=== PATIENT | female | born 1970 | race Caucasian/White ===

== ENCOUNTER 2016-11-06 01:18 | Inpatient (IN) | payer MEDICAID, OTHER ==
[~2016-11-06] VITALS: Ht 157.5 cm; Wt 75.3 kg
[2016-11-06] MEDS ORDERED: DULO20CA30 PO (01:25)
[2016-11-06] MEDS ORDERED: BUPR150SR PO (01:25)
[2016-11-06] MEDS ORDERED: AMLO-511 PO (01:25)
[2016-11-06] MEDS ORDERED: LORazepam 2 MG TABLET PO ONE ×2 (02:15→06:15)
[2016-11-06 05:31] LABS: BASOPHILS # (AUTO) 0.05 K/uL (0.00-0.20); BASOPHILS % (AUTO) 0.5 % (0.0-2.0); EOSINOPHILS # (AUTO) 0.05 K/uL (0.00-0.70); EOSINOPHILS % (AUTO) 0.54 % (1.0-6.0); HEMATOCRIT 39.4 % (36-46); HEMOGLOBIN 13.5 g/dL (12.0-16.0); LYMPHOCYTES # (AUTO) 2.8 K/uL (1.0-4.8); LYMPHOCYTES % (AUTO) 30.2 % (22.0-44.0); MEAN CORPUSCULAR HEMOGLOBIN 31.8 pg (26.0-34.0); MEAN CORPUSCULAR HGB CONC 34.3 G/dL (31.0-37.0); MEAN CORPUSCULAR VOLUME 93 fL (80-100); MONOCYTES # (AUTO) 0.9 K/uL (0.1-1.0); MONOCYTES % (AUTO) 9.6 % (2.0-9.0); NEUTROPHILS # (AUTO) 5.6 K/uL (1.8-7.7); NEUTROPHILS % (AUTO) 59.2 % (40.0-70.0); PLATELET COUNT (AUTO) 342 K/uL (150-450); RED BLOOD CELL COUNT(AUTO) 4.25 MIL/uL (4.00-5.20); WHITE BLOOD COUNT (AUTO) 9.4 K/uL (4.5-11.0)
[2016-11-06 05:41] LABS: ANION GAP 9 mmol/L (8-16); CALCIUM, TOTAL 9.2 mg/dL (8.8-10.5); CARBON DIOXIDE 28 mmol/L (22-29); CHLORIDE 101 mmol/L (98-107); CREATININE 0.91 mg/dL (0.60-1.30); GLOMERULAR FILTR. RATE CALC > 60 mL/min (>60); POTASSIUM 3.4 mmol/L (3.5-5.1); SODIUM SERUM 138 mmol/L (136-145); UREA NITROGEN, BLOOD 12 mg/dL (7-18)
[2016-11-06 05:47] LABS: ALANINE AMINOTRANSFERASE 22 U/L (12-78); ALBUMIN 4.2 g/dL (3.4-5.0); ASPARTATE AMINOTRANSFERASE 16 U/L (15-37); BILIRUBIN,TOTAL 0.5 mg/dL (0.1-1.0); TOTAL PROTEIN, SERUM 7.8 g/dL (6.4-8.2)
[2016-11-06] MEDS ORDERED: ZOLPIDEM TARTRATE 10 MG TABLET PO PRN (06:00)
[2016-11-06] MEDS ORDERED: HALOPERIDOL 5 MG TABLET PO ONE (06:15)
[2016-11-06] MEDS ORDERED: DiphenhydrAMINE HCL 25 MG CAPSULE PO ONE (06:15)
[2016-11-06] MEDS: HALOPERIDOL 5 MG TABLET PO PRN ×2 (07:43→20:38)
[2016-11-06 11:52] VITALS: BP 124/72
[2016-11-06] MEDS: LORazepam 2 MG TABLET PO PRN ×2 (12:13→20:38)
[2016-11-06] MEDS ORDERED: POTASSIUM CHLORIDE 20 MEQ ER TABLET PO ONE (13:15)
[2016-11-06 16:06] VITALS: BP 132/72
[2016-11-07 05:22] VITALS: BP 122/65
[2016-11-07 07:58] LABS: ANION GAP 7 mmol/L (8-16); CALCIUM, TOTAL 9.1 mg/dL (8.8-10.5); CARBON DIOXIDE 28 mmol/L (22-29); CHLORIDE 102 mmol/L (98-107); CREATININE 0.96 mg/dL (0.60-1.30); GLOMERULAR FILTR. RATE CALC > 60 mL/min (>60); POTASSIUM 4.1 mmol/L (3.5-5.1); SODIUM SERUM 137 mmol/L (136-145); UREA NITROGEN, BLOOD 12 mg/dL (7-18)
[2016-11-07] MEDS: BuPROPion HCL 150 MG SR TABLET PO SCH (08:14)
[2016-11-07] MEDS: DULoxetine HCL 20 MG CAPSULE PO SCH (08:14)
[2016-11-07 08:35] VITALS: BP 147/86
[2016-11-07] MEDS ORDERED: DULoxetine HCL 20 MG CAPSULE PO SCH ×2 (09:00)
[2016-11-07] MEDS: LORazepam 2 MG TABLET PO PRN (10:28)
[2016-11-07 16:09] VITALS: BP 134/79
[2016-11-08 05:51] VITALS: BP 135/90
[2016-11-08 08:25] VITALS: BP 143/106
[2016-11-08] MEDS: DULoxetine HCL 20 MG CAPSULE PO SCH (08:36)
[2016-11-08] MEDS: BuPROPion HCL 150 MG SR TABLET PO SCH (08:36)
[2016-11-08] MEDS ORDERED: AmLODIPine BESYLATE 5 MG TABLET PO SCH (09:00)
[2016-11-08] MEDS: LORazepam 2 MG TABLET PO PRN ×2 (09:33→16:30)
[2016-11-08 10:02] LABS: APPEARANCE,URINE CLOUDY (CLEAR); GLUCOSE, URINE (UA) NEGATIVE (NEGATIVE); KETONES,URINE NEGATIVE (NEGATIVE); LEUKOCYTE ESTERASE ,URINE LARGE (NEGATIVE); OCCULT BLOOD,URINE NEGATIVE (NEGATIVE); PROTEIN,URINE NEGATIVE (NEGATIVE)
[2016-11-08 10:18] LABS: ADD UA MICROSCOPIC YES
[2016-11-08 10:20] LABS: RBC,URINE 0-2 /HPF (0-2)
[2016-11-08 10:21] LABS: SQUAMOUS EPITHELIAL CELL,UR Many /LPF (None Seen)
[2016-11-08 12:02] VITALS: BP 121/91
[2016-11-08 16:00] VITALS: BP 117/83
== END 2016-11-08 18:00 | disposition home or self-care (01) | DRG 753 ==
LOC: EMS 01:20 → B2S 08:51
PROVIDERS: ADMIT Psychiatry & Neurology Psychiatry; ATTEND Psychiatry & Neurology Child & Adolescent Psychiatry
DX: F31.4 Bipolar disorder, current episode depressed, severe, without psychotic features (principal); R45.851 Suicidal ideations; I10 Essential (primary) hypertension; Z88.8 Allergy status to other drugs, medicaments and biological substances; F19.10 Other psychoactive substance abuse, uncomplicated; F10.10 Alcohol abuse, uncomplicated; Y90.0 Blood alcohol level of less than 20 mg/100 ml; E87.6 Hypokalemia; F43.10 Post-traumatic stress disorder, unspecified; F41.9 Anxiety disorder, unspecified; F60.9 Personality disorder, unspecified
CPT/HCPCS: 80307; 87086; 99285; G0480